=== PATIENT | female | born 1945 ===

== ENCOUNTER 2018-07-07 07:56 | Day surgery (SDC) | payer MEDICARE ==
[2018-07-07 08:37] VITALS: BMI 30.2
[2018-07-07] MEDS ORDERED: Lactated Ringer's 500 ML IV ONE (09:49)
[2018-07-07] MEDS ORDERED: Propofol 10 mg/ml Inj (20 ML) ONE (09:50)
[2018-07-07 10:45] VITALS: TEMP 97; O2SAT 100
[2018-07-07 10:46] VITALS: BP 127/63; PULSE 60; RESP 18
== END 2018-07-07 12:48 | disposition home or self-care (01) ==
LOC: H.ENDO 07:56
PROVIDERS: ATTEND Internal Medicine Gastroenterology
DX: Z12.11 Encounter for screening for malignant neoplasm of colon (principal); J45.909 Unspecified asthma, uncomplicated; I10 Essential (primary) hypertension; D49.0 Neoplasm of unspecified behavior of digestive system; K57.30 Diverticulosis of large intestine without perforation or abscess without bleeding
CPT/HCPCS: 45378; J2001; J2704; J7120